=== PATIENT | female | born 1945 | race Caucasian/White ===

== ENCOUNTER 2020-09-21 20:48 | Emergency (ER) | payer MEDICARE ==
[~2020-09-21] VITALS: Ht 158.8 cm; Wt 64.9 kg
[2020-09-21] MEDS ORDERED: TRAMADOL HCL 50 MG TAB PO STA (20:50)
[2020-09-21] MEDS ORDERED: LIDOCAINE 1% 5ML-MPF INJ STA (20:50)
[2020-09-21] MEDS ORDERED: LIDOCAINE HCL 1% LOCAL INJ 20 ML VIAL ONE (21:12)
[2020-09-21] MEDS ORDERED: TRAMADOL HCL 50 MG TAB ONE (21:12)
[2020-09-21 21:46] VITALS: BP 168/74
== END 2020-09-21 21:46 | disposition home or self-care (01) ==
LOC: FSED 20:51
DX: S52.502A Unspecified fracture of the lower end of left radius, initial encounter for closed fracture (principal); S61.412A Laceration without foreign body of left hand, initial encounter; W18.30XA Fall on same level, unspecified, initial encounter; Y93.01 Activity, walking, marching and hiking
CPT/HCPCS: 12001; 25605; 73100; 73110; 73130; 99284; J2001